=== PATIENT | male | born 1950 | race Caucasian/White ===

== ENCOUNTER 2017-07-24 10:17 | Emergency (ER) | payer SELFPAY ==
[2017-07-24] MEDS ORDERED: SODIUM CHLORIDE 0.9% 1,000 ML IV ONE (10:53)
[2017-07-24 11:05] LABS: BASOPHILS # (AUTO) 0.1 10^3/uL (0.0-0.1); BASOPHILS % (AUTO) 0.3 %; EOSINOPHILS # (AUTO) 0.1 10^3/uL (0.0-0.7); EOSINOPHILS % (AUTO) 0.5 %; HCT - HEMATOCRIT 51.6 % (42.0-52.0); HGB - HEMOGLOBIN 17.1 g/dL (14.0-18.0); LYMPHOCYTES # (AUTO) 1.8 10^3/uL (1.5-3.5); LYMPHOCYTES % (AUTO) 12.2 %; MEAN CORPUSCULAR HEMOGLOBIN 30.2 pg (27.0-31.0); MEAN CORPUSCULAR HGB CONC 33.2 g/dL (32.0-36.0); MEAN CORPUSCULAR VOLUME 91.1 fL (80.0-94.0); MEAN PLATELET VOLUME 8.7 fL (7.4-11.4); MONOCYTES # (AUTO) 0.7 10^3/uL (0.0-1.0); MONOCYTES % (AUTO) 5.1 %; NEUTROPHILS # (AUTO) 11.9 10^3/uL (1.5-6.6); NEUTROPHILS % (AUTO) 81.9 %; NUCLEATED RED BLOOD CELLS AUTO 0.2 /100WBC; RED BLOOD COUNT 5.66 10^6/uL (4.70-6.10); RED CELL DISTRIBUTION WIDTH 14.5 % (12.0-15.0); UNCORRECTED WHITE BLOOD COUNT 14.6 x10^3/uL; WHITE BLOOD COUNT 14.6 x10^3/uL (4.8-10.8)
[2017-07-24 11:14] LABS: CALCIUM 8.7 mg/dL (8.5-10.3); CREATININE 0.8 mg/dL (0.6-1.2); POTASSIUM 4.7 mmol/L (3.5-5.0)
--- NOTE | 2017-07-24 11:24 | ED Physician Documentation ---
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 went to [facility] today to have teeth removed under sedation and was found to have a HR of 160 [facility] considered anxiety and gave versed and fentanyl but tachy persisted gave labetolol which slowed enough to show underlying flutter pt is fairly asymptomatic no CP SOA or sig wekaness he did have a sensation of palp last night briefly and more fatigued for about 6 months takes no meds so no new meds has dental issues but no recent fever baseline smoker cough no NVD no leg pain ro swelling drinks massive amt of caffeine no hx same pt states he has no insurance and cannot afford admission so will need to get as much done as ER wup as possible Review of Systems Constitutional: denies: Fever, Chills Cardiac: reports: Palpitations (yesterday). denies: Chest pain / pressure Respiratory: reports: Cough (baseline). denies: Dyspnea GI: denies: Abdominal Pain, Nausea, Vomiting, Diarrhea : denies: Dysuria Neurologic: denies: Generalized weakness Endocrine: denies: Easy bruising / bleeding Immunocompromised: denies: Immunocompromised PD PAST MEDICAL HISTORY - Past Medical History Past Medical History: No Neuro: None - Past Surgical History Past Surgical History: Yes General: Bowel surgery - Present Medications Home Medications: Ambulatory Orders Medication Instructions Recorded Confirmed Aspirin Chewable [[facility] 81 mg PO DAILY #30 tablet 07/24/17 Aspirin] Metoprolol Tartrate 50 mg PO BID #60 tablet 07/24/17 - Allergies Allergies/Adverse Reactions: Allergies Allergy/AdvReac Type Severity Reaction Status Date / Time No Known Drug Allergies Allergy Verified 07/24/17 10:32 - Social History Does the pt smoke?: Yes Smoking Status: Current every day smoker PD ED PE NORMAL - Vitals Vital signs reviewed: Yes - General General: Alert and oriented X 3 - HEENT HEENT: Atraumatic, Other (dental decay no redness or swelling or trismus) - Neck Neck: Supple, no meningeal sign - Cardiac Cardiac: No murmur. No: RRR (tachy) - Respiratory Respiratory: No respiratory distress, Clear bilaterally - Derm Derm: Normal color - Extremities Extremities: No deformity, Normal ROM s pain, No edema, No calf tenderness / cord - Neuro Neuro: Alert and oriented X 3 - Psych Psych: Normal mood Results - Vitals Vitals: Vital Signs - 24 hr 07/24/17 07/24/17 07/24/17 10:26 10:49 11:58 Temperature 36.2 C L Heart Rate 154 H 107 H 108 H Respiratory 17 13 14 Rate Blood Pressure 115/88 H 122/60 130/78 O2 Saturation 100 93 95 07/24/17 07/24/17 07/24/17 12:02 12:05 12:12 Temperature Heart Rate 107 H 82 83 Respiratory 17 14 14 Rate Blood Pressure 113/73 114/72 117/72 O2 Saturation 95 97 95 07/24/17 07/24/17 07/24/17 12:28 13:06 14:08 Temperature Heart Rate 82 106 H 83 Respiratory 13 16 16 Rate Blood Pressure 115/74 137/72 H 123/84 H O2 Saturation 94 94 93 Oxygen O2 Source Room air - EKG (time done) 1027 Rate: Rate (enter#) Rhythm: Other (narrow complex regular rhythm approx 150, per [facility] when slowed revealed underlying flutter) Ischemia: Non specific changes (nferior, may be rate related). No: ST elevation c/w ischemia 1301 Rate: Rate (enter#) (109) Rhythm: Atrial flutter Intervals: Other (possible RBBB) Ischemia: Non specific changes - Labs Labs: Laboratory Tests 07/24/17 07/24/17 07/24/17 10:50 10:50 10:50 WBC 14.6 H RBC 5.66 Hgb 17.1 Hct 51.6 MCV 91.1 MCH 30.2 MCHC 33.2 RDW 14.5 Plt Count 237 MPV 8.7 Neut # 11.9 H Lymph # 1.8 Cannon # 0.7 Eos # 0.1 Baso # 0.1 Absolute Nucleated RBC 0.02 Nucleated RBCs 0.2 D-Dimer Sodium 138 Potassium 4.7 Chloride 105 Carbon Dioxide 27 Anion Gap 6.0 BUN 13 Creatinine 0.8 Estimated GFR (MDRD) 97 Glucose 115 H Calcium 8.7 Troponin I < 0.04 TSH Urine Color Urine Clarity Urine pH Ur Specific Harts Urine Protein Urine Glucose (UA) Urine Ketones Urine Occult Blood Urine Nitrite Urine Bilirubin Urine Urobilinogen Ur Leukocyte Esterase Urine RBC Urine WBC Ur Squamous Epith Cells Urine Bacteria Urine Casts Urine Mucus Ur Microscopic Review Urine Culture Comments 07/24/17 07/24/17 07/24/17 10:50 11:38 14:30 WBC RBC Hgb Hct MCV MCH MCHC RDW Plt Count MPV Neut # Lymph # Cannon # Eos # Baso # Absolute Nucleated RBC Nucleated RBCs D-Dimer 138.9 L Sodium Potassium Chloride Carbon Dioxide Anion Gap BUN Creatinine Estimated GFR (MDRD) Glucose Calcium Troponin I TSH 1.27 Urine Color YELLOW Urine Clarity CLEAR Urine pH 6.0 Ur Specific Harts 1.025 Urine Protein NEGATIVE Urine Glucose (UA) NEGATIVE Urine Ketones TRACE Urine Occult Blood NEGATIVE Urine Nitrite NEGATIVE Urine Bilirubin NEGATIVE Urine Urobilinogen 0.2 (NORMAL) Ur Leukocyte Esterase SMALL H Urine RBC 0-5 Urine WBC 11-25 H Ur Squamous Epith Cells FEW Squamous Urine Bacteria Rare Urine Casts 3-5 Hyaline Casts Urine Mucus Few Strands Ur Microscopic Review INDICATED Urine Culture Comments INDICATED - Rads (name of study) echo Radiology: See rad report (fluter, nl LV, EF 60-65%, mild to mod RV enlargement , mild to mod atrial enlargement. Trileaflet aortic valve, mild scleoris, trace regurge. Mild mitral regurge. Mild tricuspid regurge. Mild pulmonic regurge. No effusion. Nl septum. Nl aortic root. Nl pulm artery. No mass or thrombus seen.) PD MEDICAL DECISION MAKING - ED course ED course: newly noted but uncertain duration asymptomatic a flutter will check lytes, echo, d dimer (PE could cause) TSH and trial BB for rate control cannot cardiovert as duration is unknown and TTE is insufficient to clear for cardioversion if rate controlled and work up neg will d/w cardio for dispo and hopefully outpt management echo no acute, no thrombus seen rate controlled d/w cardio Dr Rosa at [facility] 50 PO BID metoprolol with nl EF unlikely to have been in a flutter for a long time CHADS of 0 for now, so rec asa 81 mg PO fup PMD to check rate control - if need more rate control inc to 100 BID rec ablation but will need to check on getting insurance do not cardiovert now based on TTE if symptomatic could be on anticoag for few weeks then cardiovert for cardio fup will respect need to keep cost down if rate controlled should not progress to cardiomyopathy Departure - Departure Disposition: Home, Self Care Clinical Impression: Atrial flutter Qualifiers: Atrial flutter type: unspecified Qualified Code(s): I48.92 - Unspecified atrial flutter Condition: Good Instructions: Atrial Flutter Prescriptions: Metoprolol Tartrate 50 mg PO BID #60 tablet Aspirin Chewable [[facility] Aspirin] 81 mg PO DAILY #30 tablet Comments: You are in an abnormal heart rhythm called atrial flutter. The top chambers of your heart are beating more quickly than the bottom chambers Initially your heart rate was very fast but now it is controlled with medication Your labs looked fine - no evidence of electrolyte problems, a heart attack, a pulmonary embolus, or thyroid problems to have caused this. And the echocardiogram showed your heart is structurally fine. I discussed your case with cardiology Dr Rosa at [facility] in [place]. He advises that you can go home now that your rate is controlled You need to take a baby aspirin every day because atrial flutter puts you at risk for strokes You need to take a medication called metoprolol twice a day to control your rate. In order to get rid of the flutter and put your heart back in a regular rhythm, two option are possible 1) you have an ablation which is a procedure where the abnormal electric pathway in your heart is permanently blocked by doing a cardiac procedure 2) you can get a cardioversion which is an electric shock to your chest wall to try and reset your heart But you would need to be on a strong blood thinner for several weeks before these procedures could be done. And you might want to get insurance first too. Dr Rosa would like to see you in his cardiology clinic for follow up and to see how your heart rate is controlled. Call to schedule If at any point you feel worse, please come back to the ER You may have a urine infection, a culture is being run, we will call you if it is positive
[2017-07-24] MEDS ORDERED: METOPROLOL 5 MG/5 ML VIAL IVP STA (11:26)
[2017-07-24] MEDS ORDERED: METOPROLOL TARTRATE 50 MG TABLET PO STA ×2 (11:26→15:48)
[2017-07-24] MEDS ORDERED: METOPROLOL 5 MG/5 ML VIAL IVP ONE (11:45)
[2017-07-24] MEDS ORDERED: METOPROLOL TARTRATE 25 MG TABLET ONE ×2 (11:45→15:54)
[2017-07-24 14:38] LABS: BILIRUBIN,URINE NEGATIVE (NEGATIVE)
[2017-07-24 14:40] LABS: UA w/ MICROSCOPIC CHARGE YES
[2017-07-24 14:47] LABS: UR CULTURE IF IND INDICATED
[2017-07-24 16:10] VITALS: BP 122/78
== END 2017-07-24 16:16 | disposition home or self-care (01) ==
LOC: ED 10:17
DX: I48.92 Unspecified atrial flutter (principal); R94.31 Abnormal electrocardiogram [ECG] [EKG]; F17.200 Nicotine dependence, unspecified, uncomplicated
CPT/HCPCS: 36415; 80048; 81001; 84443; 84484; 85025; 85379; 87086; 93005; 93306; 96361; 96374; 99284; A9270; 81003